=== PATIENT | male | born 1945 | race Caucasian/White ===

== ENCOUNTER 2017-04-20 13:10 | Emergency (ER) | payer OTHER ==
[~2017-04-20] VITALS: Ht 175.3 cm; Wt 82.0 kg
[~2017-04-20 13:10] MED LIST: ALBUTERO1 IN; ALBUTEROL S2.5 MG/.5 IN; AMOXICILLIN500 MG PO; ARTIF TEARS OU; ATENOLOL25 MG OR; CLARITIN10 M1 PO; CLARITIN10 MG PO; CLOTRIMAZOLE12 TOP; CLOTRIMAZOLE13 TOP; FOSINOPRIL40 MG PO; GLUCOSE4 GM PO; GLUCOVANC1 OR; GLUCOVANCE5 MG/500 M OR; HYDROCORT AC2.5% TOP; LABETALOL PO; MECLIZINE25 MG PO; METFORMIN500 MG PO; NORVASC2.5 MG PO; NOVOLIN N100 UNIT/M SC; NOVOLIN N1000 UNITS SC; PLAVIX75 MG OR; PRILOSEC20 MG PO; PRILOSEC40 MG PO; TAM75CAP PO; TEARS NATURA OU; TYLENOL500 MG PO; VIAGRA25 MG PO; VITAMIN B-12500 MCG PO; ZESTRIL OR; ZESTRIL/PRINIVI20 MG OR; ZESTRIL10 M1 PO; [UNRECOGNIZED DRUG - OTHER] OR
[2017-04-20 14:01] LABS: HEMATOCRIT 37.7 % (39.0-50.0); HEMOGLOBIN 12.8 g/dl (14.0-18.0); IMMATURE GRANULOCYTES 0.4 % (0.0-1.0); MEAN CELL VOLUME 87.7 fL CALC (80.0-100.0); MEAN CORPUSCULAR HGB 29.8 pG CALC (26.0-32.0); NEUT# 5.17 thou/uL (1.82-7.42); RED BLOOD COUNT 4.3 mill/uL (4.70-6.10); RED CELL DISTRI WIDTH 12.7 % (11.5-15.5)
[2017-04-20 14:09] LABS: PROTHROMBIN TIME 10.6 SECONDS (9.0-12.5)
[2017-04-20 14:11] LABS: ALBUMIN 4.2 g/dL (3.2-5.0); ALKALINE PHOSPHATASE 63 u/l (38-126); ANION GAP 15 (6-22 (CALC)); BILIRUBIN, TOTAL 0.6 mg/dL (0.0-1.4); BUN 9 mg/dL (8-23); BUN/CREATININE RATIO 10 (12-20 (CALC)); CALCIUM 9.4 mg/dL (8.4-10.2); CARBON DIOXIDE 27 mmol/l (22-30); CHLORIDE 102 mmol/l (95-108); CREATININE 0.9 mg/dL (0.7-1.3); GFR > 60 ML/MIN (>=60 (CALC)); GFR FOR AFR.AMER. > 60 ML/MIN (>=60 (CALC)); GLUCOSE 180 mg/dL (82-115); POTASSIUM 4.3 mmol/l (3.5-5.1); SGOT/AST 18 u/l (19-48); SGPT/ALT 24 u/l (11-66); SODIUM 140 mmol/l (137-146); TOTAL PROTEIN 7.2 g/dL (6.3-8.2)
[2017-04-20 14:23] LABS: MYOGLOBIN 42 ng/mL (0 - 121)
[2017-04-20 15:55] VITALS: BP 125/70
== END 2017-04-20 15:56 | disposition left against medical advice (07) | DRG 69 ==
LOC: ED 13:10
PROVIDERS: Emergency Medicine
DX: G45.9 Transient cerebral ischemic attack, unspecified (principal); I69.954 Hemiplegia and hemiparesis following unspecified cerebrovascular disease affecting left non-dominant side; J44.9 Chronic obstructive pulmonary disease, unspecified; E11.9 Type 2 diabetes mellitus without complications; I10 Essential (primary) hypertension; Z79.4 Long term (current) use of insulin; Z91.19 Patient's noncompliance with other medical treatment and regimen

== ENCOUNTER 2017-06-11 00:58 | Emergency (ER) | payer OTHER ==
[~2017-06-11] VITALS: Ht 175.3 cm; Wt 80.4 kg
[2017-06-11 01:40] LABS: HEMATOCRIT 38.7 % (39.0-50.0); HEMOGLOBIN 13.3 g/dl (14.0-18.0); IMMATURE GRANULOCYTES 0.4 % (0.0-1.0); MEAN CELL VOLUME 86.6 fL CALC (80.0-100.0); MEAN CORPUSCULAR HGB 29.8 pG CALC (26.0-32.0); MEAN CORPUSCULAR HGB CONC 34.4 g/L CALC (32.0-36.0); NEUT# 12.25 thou/uL (1.82-7.42); RED BLOOD COUNT 4.47 mill/uL (4.70-6.10); RED CELL DISTRI WIDTH 12.4 % (11.5-15.5)
[2017-06-11 01:47] LABS: ALBUMIN 4.3 g/dL (3.2-5.0); ALKALINE PHOSPHATASE 75 u/l (38-126); ANION GAP 17 (6-22 (CALC)); BILIRUBIN, TOTAL 0.9 mg/dL (0.0-1.4); BUN 13 mg/dL (8-23); BUN/CREATININE RATIO 14 (12-20 (CALC)); CALCIUM 9.7 mg/dL (8.4-10.2); CARBON DIOXIDE 23 mmol/l (22-30); CHLORIDE 102 mmol/l (95-108); GFR > 60 ML/MIN (>=60 (CALC)); GFR FOR AFR.AMER. > 60 ML/MIN (>=60 (CALC)); GLUCOSE 330 mg/dL (82-115); POTASSIUM 4.2 mmol/l (3.5-5.1); SGOT/AST 24 u/l (19-48); SGPT/ALT 31 u/l (11-66); SODIUM 138 mmol/l (137-146); TOTAL PROTEIN 7.6 g/dL (6.3-8.2)
[2017-06-11 01:57] LABS: ACT PARTIAL THROMBO TIME 26.8 SECONDS (20.0-32.5); PROTHROMBIN TIME 10.9 SECONDS (9.0-12.5)
[2017-06-11 02:24] LABS: URINE BILIRUBIN - DIPSTICK NEGATIVE (NEGATIVE); URINE BLOOD DIPSTICK TRACE-LYSED (NEGATIVE); URINE CLARITY CLEAR; URINE COLOR YELLOW; URINE GLUCOSE - DIPSTICK >=1000 mg/dL (NEGATIVE); URINE KETONE TRACE mg/dL (NEGATIVE); URINE LEUK ESTERASE NEGATIVE (NEGATIVE); URINE NITRITE - DIPSTICK NEGATIVE (Negative); URINE PROTEIN - DIPSTICK NEGATIVE (NEG-TRACE); URINE UROBILINOGEN - DIPSTICK 0.2 E.U./dL (0.2)
[2017-06-11 07:40] VITALS: BP 169/81
== END 2017-06-11 07:40 | DRG 536 ==
LOC: ED 00:58 → ED-I 01:21 → ED 07:40
PROVIDERS: Emergency Medicine
DX: S72.042A Displaced fracture of base of neck of left femur, initial encounter for closed fracture (principal); I69.954 Hemiplegia and hemiparesis following unspecified cerebrovascular disease affecting left non-dominant side; J44.9 Chronic obstructive pulmonary disease, unspecified; E11.9 Type 2 diabetes mellitus without complications; I10 Essential (primary) hypertension; W06.XXXA Fall from bed, initial encounter; Y92.003 Bedroom of unspecified non-institutional (private) residence as the place of occurrence of the external cause; Z87.11 Personal history of peptic ulcer disease

== ENCOUNTER 2017-07-09 13:54 | Emergency (ER) | payer OTHER ==
[~2017-07-09] VITALS: Ht 175.3 cm; Wt 60.0 kg
[2017-07-09 14:18] LABS: HEMATOCRIT 33.3 % (39.0-50.0); IMMATURE GRANULOCYTES 0.3 % (0.0-1.0); MEAN CELL VOLUME 88.3 fL CALC (80.0-100.0); MEAN CORPUSCULAR HGB 29.2 pG CALC (26.0-32.0); NEUT# 7.87 thou/uL (1.82-7.42); RED BLOOD COUNT 3.77 mill/uL (4.70-6.10); RED CELL DISTRI WIDTH 12.4 % (11.5-15.5)
[2017-07-09 14:34] LABS: ALBUMIN 3.9 g/dL (3.2-5.0); ALKALINE PHOSPHATASE 82 u/l (38-126); ANION GAP 15 (6-22 (CALC)); BILIRUBIN, TOTAL 0.7 mg/dL (0.0-1.4); BUN 10 mg/dL (8-23); BUN/CREATININE RATIO 13 (12-20 (CALC)); CALCIUM 9.3 mg/dL (8.4-10.2); CARBON DIOXIDE 28 mmol/l (22-30); CHLORIDE 101 mmol/l (95-108); CREATININE 0.8 mg/dL (0.7-1.3); GFR > 60 ML/MIN (>=60 (CALC)); GFR FOR AFR.AMER. > 60 ML/MIN (>=60 (CALC)); GLUCOSE 143 mg/dL (82-115); LIPASE 39 u/l (23-300); POTASSIUM 4.3 mmol/l (3.5-5.1); SGOT/AST 28 u/l (19-48); SGPT/ALT 32 u/l (11-66); SODIUM 140 mmol/l (137-146); TOTAL PROTEIN 7.6 g/dL (6.3-8.2)
[2017-07-09 14:44] LABS: MYOGLOBIN 78 ng/mL (0 - 121)
[2017-07-09 15:14] VITALS: BP 139/69
== END 2017-07-09 15:40 | disposition short-term general hospital (02) | DRG 282 ==
LOC: ED 13:54
PROVIDERS: Emergency Medicine
DX: I21.4 Non-ST elevation (NSTEMI) myocardial infarction (principal); I10 Essential (primary) hypertension; R00.0 Tachycardia, unspecified
CPT/HCPCS: J1650

== ENCOUNTER 2017-08-04 04:34 | Emergency (ER) | payer OTHER, MEDICARE ==
[~2017-08-04] VITALS: Ht 175.3 cm; Wt 76.4 kg
[2017-08-04] MEDS ORDERED: ELIQUIS5 MG PO (05:20)
[2017-08-04] MEDS ORDERED: METOPROL TAR25 MG PO (05:21)
[2017-08-04] MEDS ORDERED: FOSINOPRIL40 MG PO (05:28)
[2017-08-04 06:39] VITALS: BP 138/75
== END 2017-08-04 06:45 | disposition home or self-care (01) | DRG 605 ==
LOC: ED 04:34
DX: S90.31XA Contusion of right foot, initial encounter (principal); W22.8XXA Striking against or struck by other objects, initial encounter; Y93.9 Activity, unspecified; Y92.009 Unspecified place in unspecified non-institutional (private) residence as the place of occurrence of the external cause

== ENCOUNTER 2017-12-12 18:05 | Emergency (ER) | payer OTHER, MEDICARE ==
[~2017-12-12] VITALS: Ht 175.3 cm; Wt 65.9 kg
[~2017-12-12 18:05] MED LIST changes: +ELIQUIS5 MG PO; +METOPROL TAR25 MG PO
[2017-12-12 18:35] LABS: IMMATURE GRANULOCYTES 0.1 % (0.0-1.0); MEAN CELL VOLUME 87.1 fL CALC (80.0-100.0); MEAN CORPUSCULAR HGB 29.2 pG CALC (26.0-32.0); MEAN CORPUSCULAR HGB CONC 33.6 g/L CALC (32.0-36.0); NEUT# 4.84 thou/uL (1.82-7.42); RED BLOOD COUNT 4.48 mill/uL (4.70-6.10); RED CELL DISTRI WIDTH 12.7 % (11.5-15.5)
[2017-12-12 18:36] LABS: HEMOGLOBIN 13.1 g/dl (14.0-18.0)
[2017-12-12 18:54] LABS: ACT PARTIAL THROMBO TIME 29.4 SECONDS (20.0-32.5); INTERNATIONAL NORMALIZED RATIO 1.1 RATIO (0.7-1.3); PROTHROMBIN TIME 12.2 SECONDS (9.0-12.5)
[2017-12-12 18:55] LABS: ALBUMIN 4.2 g/dL (3.2-5.0); ALKALINE PHOSPHATASE 81 u/l (38-126); ANION GAP 16 (6-22 (CALC)); BILIRUBIN, TOTAL 0.3 mg/dL (0.0-1.4); BUN 11 mg/dL (8-23); BUN/CREATININE RATIO 11 (12-20 (CALC)); CARBON DIOXIDE 27 mmol/l (22-30); CHLORIDE 101 mmol/l (95-108); GFR > 60 ML/MIN (>=60 (CALC)); GFR FOR AFR.AMER. > 60 ML/MIN (>=60 (CALC)); SGOT/AST 18 u/l (19-48); SGPT/ALT 25 u/l (11-66); SODIUM 140 mmol/l (137-146); TOTAL PROTEIN 7.3 g/dL (6.3-8.2)
[2017-12-12] MEDS ORDERED: SAVAYSA15 MG PO (18:57)
[2017-12-12 19:06] LABS: MYOGLOBIN 49 ng/mL (0 - 121)
[2017-12-12 19:25] LABS: URINE BILIRUBIN - DIPSTICK NEGATIVE (NEGATIVE); URINE BLOOD DIPSTICK NEGATIVE (NEGATIVE); URINE COLOR YELLOW; URINE GLUCOSE - DIPSTICK >=1000 mg/dL (NEGATIVE); URINE KETONE NEGATIVE (NEGATIVE); URINE LEUK ESTERASE NEGATIVE (NEGATIVE); URINE NITRITE - DIPSTICK NEGATIVE (Negative); URINE PROTEIN - DIPSTICK NEGATIVE (NEG-TRACE); URINE UROBILINOGEN - DIPSTICK 0.2 E.U./dL (0.2)
[2017-12-12 20:23] LABS: URINE CLARITY CLEAR
[2017-12-12 20:45] VITALS: BP 161/86
== END 2017-12-12 20:48 | disposition home or self-care (01) | DRG 69 ==
LOC: ED 18:05
PROVIDERS: Family Medicine
DX: G45.9 Transient cerebral ischemic attack, unspecified (principal); E11.40 Type 2 diabetes mellitus with diabetic neuropathy, unspecified; J44.9 Chronic obstructive pulmonary disease, unspecified; I10 Essential (primary) hypertension; Z86.73 Personal history of transient ischemic attack (TIA), and cerebral infarction without residual deficits

== ENCOUNTER 2018-04-04 21:32 | Emergency (ER) | payer OTHER, MEDICARE ==
[~2018-04-04] VITALS: Ht 177.8 cm; Wt 80.9 kg
[~2018-04-04 21:32] MED LIST changes: +SAVAYSA15 MG PO
[2018-04-04 22:02] LABS: HEMATOCRIT 39.7 % (39.0-50.0); HEMOGLOBIN 13.4 g/dl (14.0-18.0); IMMATURE GRANULOCYTES 0.2 % (0.0-1.0); MEAN CELL VOLUME 87.6 fL CALC (80.0-100.0); MEAN CORPUSCULAR HGB 29.6 pG CALC (26.0-32.0); MEAN CORPUSCULAR HGB CONC 33.8 g/L CALC (32.0-36.0); RED BLOOD COUNT 4.53 mill/uL (4.70-6.10); RED CELL DISTRI WIDTH 12.6 % (11.5-15.5)
[2018-04-04 22:16] LABS: ALBUMIN 4.1 g/dL (3.2-5.0); ALKALINE PHOSPHATASE 75 u/l (38-126); ANION GAP 14 (6-22 (CALC)); BILIRUBIN, TOTAL 0.4 mg/dL (0.0-1.4); BUN 10 mg/dL (8-23); BUN/CREATININE RATIO 10 (12-20 (CALC)); CARBON DIOXIDE 27 mmol/l (22-30); CHLORIDE 101 mmol/l (95-108); CREATININE 1.1 mg/dL (0.7-1.3); GFR > 60 ML/MIN (>=60 (CALC)); GFR FOR AFR.AMER. > 60 ML/MIN (>=60 (CALC)); POTASSIUM 3.8 mmol/l (3.5-5.1); SGOT/AST 26 u/l (19-48); SGPT/ALT 29 u/l (11-66); SODIUM 138 mmol/l (137-146); TOTAL PROTEIN 7.8 g/dL (6.3-8.2)
[2018-04-04 22:24] LABS: ACT PARTIAL THROMBO TIME 25.9 SECONDS (20.0-32.5); D-DIMER 0.53 mg/L (0.19-0.60); PROTHROMBIN TIME 10.7 SECONDS (9.0-12.5)
[2018-04-04 22:28] LABS: MYOGLOBIN 53 ng/mL (0 - 121)
[2018-04-04] MEDS ORDERED: METO25TAB PO (22:51)
[2018-04-04 23:05] VITALS: BP 164/80
== END 2018-04-04 23:05 | disposition home or self-care (01) | DRG 313 ==
LOC: ED 21:32
PROVIDERS: Family Medicine
DX: R07.89 Other chest pain (principal); R42 Dizziness and giddiness; I10 Essential (primary) hypertension; I69.954 Hemiplegia and hemiparesis following unspecified cerebrovascular disease affecting left non-dominant side; E11.40 Type 2 diabetes mellitus with diabetic neuropathy, unspecified; J44.9 Chronic obstructive pulmonary disease, unspecified

== ENCOUNTER 2019-06-10 14:01 | Emergency (ER) | payer OTHER ==
[~2019-06-10] VITALS: Ht 177.8 cm; Wt 60.0 kg
[~2019-06-10 14:01] MED LIST changes: +METO25TAB PO
[2019-06-10 15:03] LABS: HEMATOCRIT 36.9 % (39.0-50.0); HEMOGLOBIN 12.5 g/dl (14.0-18.0); IMMATURE GRANULOCYTES 0.4 % (0.0-5.0); MEAN CELL VOLUME 87.4 fL CALC (80.0-100.0); MEAN CORPUSCULAR HGB 29.6 pG CALC (26.0-32.0); MEAN CORPUSCULAR HGB CONC 33.9 g/L CALC (32.0-36.0); NEUT# 5.24 thou/uL (1.82-7.42); RED BLOOD COUNT 4.22 mill/uL (4.70-6.10); RED CELL DISTRI WIDTH 12.5 % (11.5-15.5)
[2019-06-10 15:14] LABS: ANION GAP 12 (6-22 (CALC)); BUN 10 mg/dL (8-23); BUN/CREATININE RATIO 11 (12-20 (CALC)); CARBON DIOXIDE 29 mmol/l (22-30); CHLORIDE 102 mmol/l (95-108); GFR > 60 ML/MIN (>=60 (CALC)); GFR FOR AFR.AMER. > 60 ML/MIN (>=60 (CALC)); POTASSIUM 3.7 mmol/l (3.5-5.1); SODIUM 140 mmol/l (137-146)
[2019-06-10 15:17] LABS: PROTHROMBIN TIME 10.7 SECONDS (9.0-12.5)
[2019-06-10 17:04] VITALS: BP 162/80
== END 2019-06-10 16:30 | disposition short-term general hospital (02) | DRG 65 ==
LOC: ED 14:01
PROVIDERS: Family Medicine
DX: I63.9 Cerebral infarction, unspecified (principal); R53.1 Weakness; R20.0 Anesthesia of skin; I69.354 Hemiplegia and hemiparesis following cerebral infarction affecting left non-dominant side; R29.705 NIHSS score 5; J44.9 Chronic obstructive pulmonary disease, unspecified; E11.40 Type 2 diabetes mellitus with diabetic neuropathy, unspecified; I10 Essential (primary) hypertension; Z79.4 Long term (current) use of insulin

== ENCOUNTER 2020-02-22 11:23 | Emergency (ER) | payer OTHER ==
[2020-02-22] MEDS ORDERED: MEDDOSEPAK PO (12:43)
[2020-02-22 12:50] VITALS: BP 155/93
== END 2020-02-22 12:57 | disposition home or self-care (01) | DRG 561 ==
LOC: ED 11:23
DX: T84.84XA Pain due to internal orthopedic prosthetic devices, implants and grafts, initial encounter (principal); E11.40 Type 2 diabetes mellitus with diabetic neuropathy, unspecified; I10 Essential (primary) hypertension; J44.9 Chronic obstructive pulmonary disease, unspecified; Y83.1 Surgical operation with implant of artificial internal device as the cause of abnormal reaction of the patient, or of later complication, without mention of misadventure at the time of the procedure; Z96.642 Presence of left artificial hip joint; Z79.4 Long term (current) use of insulin

== ENCOUNTER 2020-03-08 16:35 | Emergency (ER) | payer OTHER ==
[~2020-03-08 16:35] MED LIST changes: +MEDDOSEPAK PO
[2020-03-08 17:58] LABS: HEMATOCRIT 39.2 % (39.0-50.0); HEMOGLOBIN 13.2 g/dl (14.0-18.0); IMMATURE GRANULOCYTES 0.5 % (0.0-5.0); MEAN CELL VOLUME 87.9 fL CALC (80.0-100.0); MEAN CORPUSCULAR HGB 29.6 pG CALC (26.0-32.0); MEAN CORPUSCULAR HGB CONC 33.7 g/dL CAL (32.0-36.0); NEUT# 7.29 thou/uL (1.82-7.42); RED BLOOD COUNT 4.46 mill/uL (4.70-6.10); RED CELL DISTRI WIDTH 12.9 % (11.5-15.5)
[2020-03-08 18:14] LABS: ALKALINE PHOSPHATASE 92 u/l (38-126); ANION GAP 13 (6-22 (CALC)); BUN 22 mg/dL (8-23); BUN/CREATININE RATIO 24 (12-20 (CALC)); CARBON DIOXIDE 26 mmol/l (22-30); CHLORIDE 100 mmol/l (95-108); CREATININE 0.9 mg/dL (0.7-1.3); GFR > 60 ML/MIN (>=60 (CALC)); GFR FOR AFR.AMER. > 60 ML/MIN (>=60 (CALC)); POTASSIUM 4.1 mmol/l (3.5-5.1); SGOT/AST 20 u/l (19-48); SODIUM 134 mmol/l (137-146); TOTAL PROTEIN 7.5 g/dL (6.3-8.2)
[2020-03-08 18:25] LABS: MYOGLOBIN 37 ng/mL (0 - 121)
[2020-03-08 18:27] LABS: BILIRUBIN, TOTAL 0.6 mg/dL (0.0-1.4)
[2020-03-08 18:48] LABS: URINE BILIRUBIN - DIPSTICK NEGATIVE (NEGATIVE); URINE BLOOD DIPSTICK NEGATIVE (NEGATIVE); URINE COLOR YELLOW; URINE GLUCOSE - DIPSTICK NEGATIVE (NEGATIVE); URINE KETONE NEGATIVE (NEGATIVE); URINE LEUK ESTERASE NEGATIVE (NEGATIVE); URINE NITRITE - DIPSTICK NEGATIVE (Negative); URINE PROTEIN - DIPSTICK NEGATIVE (NEG-TRACE); URINE UROBILINOGEN - DIPSTICK 0.2 E.U./dL (0.2)
[2020-03-08 19:32] VITALS: BP 112/57
== END 2020-03-08 19:32 | disposition home or self-care (01) | DRG 149 ==
LOC: ED 16:35
DX: R42 Dizziness and giddiness (principal); I69.954 Hemiplegia and hemiparesis following unspecified cerebrovascular disease affecting left non-dominant side; E11.40 Type 2 diabetes mellitus with diabetic neuropathy, unspecified; I10 Essential (primary) hypertension; J44.9 Chronic obstructive pulmonary disease, unspecified; Z79.4 Long term (current) use of insulin

== ENCOUNTER 2021-04-27 13:35 | Emergency (ER) | payer OTHER ==
[~2021-04-27] VITALS: Ht 177.8 cm; Wt 74.5 kg
[2021-04-27] MEDS ORDERED: PROAIR HFA IN (14:12)
[2021-04-27] MEDS ORDERED: ASPIRIN81 MG PO (14:13)
[2021-04-27] MEDS ORDERED: JARDIANCE25 MG PO (14:14)
[2021-04-27] MEDS ORDERED: FINASTERIDE PO (14:15)
[2021-04-27] MEDS ORDERED: LEVEMIR FL100 UNIT/M SC ×2 (14:16→14:17)
[2021-04-27] MEDS ORDERED: LIDOCAINE PATCH 55 % TOP (14:18)
[2021-04-27] MEDS ORDERED: PREMIUM LIDOCAINE5 % TOP (14:20)
[2021-04-27] MEDS ORDERED: LORATADINE10 M1 PO (14:20)
[2021-04-27] MEDS ORDERED: LOSARTAN POTASS25 MG PO (14:21)
[2021-04-27] MEDS ORDERED: OMEPRAZOLE DR20 MG PO (14:22)
[2021-04-27] MEDS ORDERED: MAGNESIUM OXID400 M1 PO (14:22)
[2021-04-27] MEDS ORDERED: POLYETHYLE17 GM/SCOO PO (14:23)
[2021-04-27] MEDS ORDERED: SPIRIVA RE2.5 MCG/AC INHW/SPAC (14:24)
[2021-04-27 14:25] LABS: ALBUMIN 4.2 g/dL (3.2-5.0); ALKALINE PHOSPHATASE 75 u/l (38-126); ANION GAP 16 (6-22 (CALC)); BILIRUBIN, TOTAL 0.5 mg/dL (0.0-1.4); BUN 19 mg/dL (8-23); BUN/CREATININE RATIO 20 (12-20 (CALC)); CARBON DIOXIDE 24 mmol/l (22-30); CHLORIDE 103 mmol/l (95-108); GFR > 60 ML/MIN (>=60 (CALC)); GFR FOR AFR.AMER. > 60 ML/MIN (>=60 (CALC)); HEMATOCRIT 42.3 % (39.0-50.0); IMMATURE GRANULOCYTES 0.5 % (0.0-5.0); MEAN CELL VOLUME 90.2 fL CALC (80.0-100.0); MEAN CORPUSCULAR HGB 29.9 pG CALC (26.0-32.0); MEAN CORPUSCULAR HGB CONC 33.1 g/dL CAL (32.0-36.0); NEUT# 7.21 thou/uL (1.82-7.42); RED BLOOD COUNT 4.69 mill/uL (4.70-6.10); RED CELL DISTRI WIDTH 12.7 % (11.5-15.5); SODIUM 138 mmol/l (137-146); TOTAL PROTEIN 7.7 g/dL (6.3-8.2)
[2021-04-27] MEDS ORDERED: VITAMIN B COMPL1 TAB PO (14:26)
[2021-04-27 14:31] LABS: SGOT/AST 40 u/l (19-48)
[2021-04-27] MEDS ORDERED: ASCORBIC ACD500 MG PO (14:31)
[2021-04-27] MEDS ORDERED: D3-10001000 UNIT PO (14:32)
[2021-04-27 14:37] LABS: MYOGLOBIN 33 ng/mL (0 - 121)
[2021-04-27] MEDS ORDERED: VITAMIN B-121000 MC2 SL (14:47)
[2021-04-27] MEDS ORDERED: PROBIOTIC1 TAB PO (14:48)
[2021-04-27 16:20] LABS: URINE BILIRUBIN - DIPSTICK NEGATIVE (NEGATIVE); URINE BLOOD DIPSTICK NEGATIVE (NEGATIVE); URINE COLOR YELLOW; URINE GLUCOSE - DIPSTICK >=1000 mg/dL (NEGATIVE); URINE KETONE 15 mg/dL (NEGATIVE); URINE LEUK ESTERASE NEGATIVE (NEGATIVE); URINE PH 5.5 (4.5-8.0); URINE PROTEIN - DIPSTICK NEGATIVE (NEG-TRACE); URINE UROBILINOGEN - DIPSTICK 0.2 E.U./dL (0.2)
[2021-04-27 16:25] LABS: URINE NITRITE - DIPSTICK NEGATIVE (Negative)
[2021-04-27] MEDS ORDERED: ONDANSETRON4 MG PO (17:29)
[2021-04-27] MEDS ORDERED: MECLIZINE25 MG PO (17:29)
[2021-04-27 17:56] VITALS: BP 150/80
== END 2021-04-27 18:30 | disposition home or self-care (01) | DRG 149 ==
LOC: ED 13:35
PROVIDERS: Emergency Medicine
DX: R42 Dizziness and giddiness (principal); I10 Essential (primary) hypertension; E11.40 Type 2 diabetes mellitus with diabetic neuropathy, unspecified; J44.9 Chronic obstructive pulmonary disease, unspecified; Z79.4 Long term (current) use of insulin; Z86.73 Personal history of transient ischemic attack (TIA), and cerebral infarction without residual deficits; Z20.822 Contact with and (suspected) exposure to COVID-19

== ENCOUNTER 2021-06-21 10:42 | Emergency (ER) | payer OTHER ==
[~2021-06-21] VITALS: Ht 177.8 cm; Wt 73.0 kg
[~2021-06-21 10:42] MED LIST changes: +ASCORBIC ACD500 MG PO; +ASPIRIN81 MG PO; +D3-10001000 UNIT PO; +FINASTERIDE PO; +JARDIANCE25 MG PO; +LEVEMIR FL100 UNIT/M SC; +LIDOCAINE PATCH 55 % TOP; +LORATADINE10 M1 PO; +LOSARTAN POTASS25 MG PO; +MAGNESIUM OXID400 M1 PO; +OMEPRAZOLE DR20 MG PO; +ONDANSETRON4 MG PO; +POLYETHYLE17 GM/SCOO PO; +PREMIUM LIDOCAINE5 % TOP; +PROAIR HFA IN; +PROBIOTIC1 TAB PO; +SPIRIVA RE2.5 MCG/AC INHW/SPAC; +VITAMIN B COMPL1 TAB PO; +VITAMIN B-121000 MC2 SL
[2021-06-21 11:42] VITALS: BP 118/75
== END 2021-06-21 12:38 | disposition left against medical advice (07) | DRG 951 ==
LOC: ED 10:42 → LWOBS 12:37
DX: Z53.21 Procedure and treatment not carried out due to patient leaving prior to being seen by health care provider (principal)

== ENCOUNTER 2021-06-23 10:19 | Emergency (ER) | payer OTHER ==
[~2021-06-23] VITALS: Ht 177.8 cm; Wt 74.0 kg
[2021-06-23 11:15] LABS: URINE BILIRUBIN - DIPSTICK NEGATIVE (NEGATIVE); URINE BLOOD DIPSTICK NEGATIVE (NEGATIVE); URINE COLOR YELLOW; URINE GLUCOSE - DIPSTICK >=1000 mg/dL (NEGATIVE); URINE KETONE NEGATIVE (NEGATIVE); URINE LEUK ESTERASE NEGATIVE (NEGATIVE); URINE PROTEIN - DIPSTICK NEGATIVE (NEG-TRACE); URINE UROBILINOGEN - DIPSTICK 0.2 E.U./dL (0.2)
[2021-06-23 11:16] LABS: HEMATOCRIT 42.1 % (39.0-50.0); HEMOGLOBIN 13.8 g/dl (14.0-18.0); IMMATURE GRANULOCYTES 0.3 % (0.0-5.0); MEAN CELL VOLUME 91.5 fL CALC (80.0-100.0); MEAN CORPUSCULAR HGB CONC 32.8 g/dL CAL (32.0-36.0); NEUT# 5.24 thou/uL (1.82-7.42); RED BLOOD COUNT 4.6 mill/uL (4.70-6.10); RED CELL DISTRI WIDTH 12.8 % (11.5-15.5)
[2021-06-23 11:18] LABS: URINE NITRITE - DIPSTICK NEGATIVE (Negative)
[2021-06-23 12:44] LABS: ALKALINE PHOSPHATASE 75 u/l (38-126); AMYLASE 88 u/l (30-110); ANION GAP 8 (6-22 (CALC)); BILIRUBIN, TOTAL 0.5 mg/dL (0.0-1.4); BUN 25 mg/dL (8-23); BUN/CREATININE RATIO 24 (12-20 (CALC)); CARBON DIOXIDE 28 mmol/l (22-30); CHLORIDE 103 mmol/l (95-108); GFR > 60 ML/MIN (>=60 (CALC)); GFR FOR AFR.AMER. > 60 ML/MIN (>=60 (CALC)); LIPASE 87 u/l (23-300); POTASSIUM 4.3 mmol/l (3.5-5.1); SGOT/AST 23 u/l (19-48); SODIUM 135 mmol/l (137-146); TOTAL PROTEIN 7.2 g/dL (6.3-8.2)
[2021-06-23 13:51] VITALS: BP 142/79
== END 2021-06-23 14:16 | disposition home or self-care (01) | DRG 392 ==
LOC: ED 10:19
PROVIDERS: Emergency Medicine
DX: R10.13 Epigastric pain (principal); I10 Essential (primary) hypertension; E11.40 Type 2 diabetes mellitus with diabetic neuropathy, unspecified; J44.9 Chronic obstructive pulmonary disease, unspecified; Z86.73 Personal history of transient ischemic attack (TIA), and cerebral infarction without residual deficits; Z79.4 Long term (current) use of insulin

== ENCOUNTER 2022-06-11 08:23 | Emergency (ER) | payer OTHER ==
[~2022-06-11] VITALS: Ht 177.8 cm; Wt 68.9 kg
[2022-06-11] VITALS (7 sets, daily range): BP systolic 109–149; BP diastolic 45–79
[2022-06-11 09:24] LABS: HEMATOCRIT 39.8 % (39.0-50.0); HEMOGLOBIN 13.8 g/dl (14.0-18.0); MEAN CELL VOLUME 86.7 fL CALC (80.0-100.0); MEAN CORPUSCULAR HGB 30.1 pG CALC (26.0-32.0); MEAN CORPUSCULAR HGB CONC 34.7 g/dL CAL (32.0-36.0); NEUT# 1.52 thou/uL (1.82-7.42); RED BLOOD COUNT 4.59 mill/uL (4.70-6.10); RED CELL DISTRI WIDTH 12.6 % (11.5-15.5)
[2022-06-11 09:37] LABS: ALKALINE PHOSPHATASE 44 u/l (38-126); ANION GAP 13 (6-22 (CALC)); BUN 20 mg/dL (8-23); BUN/CREATININE RATIO 22 (12-20 (CALC)); CARBON DIOXIDE 25 mmol/l (22-30); CHLORIDE 102 mmol/l (95-108); CREATININE 0.9 mg/dL (0.7-1.3); GFR FOR AFR.AMER. > 60 ML/MIN (>=60 (CALC)); GFR OTHER RACES > 60 ML/MIN (>=60 (CALC)); POTASSIUM 4.4 mmol/l (3.5-5.1); SODIUM 135 mmol/l (137-146); TOTAL PROTEIN 7.6 g/dL (6.3-8.2)
[2022-06-11 09:39] LABS: BILIRUBIN, TOTAL 0.8 mg/dL (0.0-1.4); SGOT/AST 41 u/l (19-48)
== END 2022-06-11 09:58 | disposition home or self-care (01) | DRG 391 ==
LOC: ED 08:23
PROVIDERS: Family Medicine
DX: R19.5 Other fecal abnormalities (principal); U07.1 COVID-19; E11.40 Type 2 diabetes mellitus with diabetic neuropathy, unspecified; I10 Essential (primary) hypertension; J44.9 Chronic obstructive pulmonary disease, unspecified; Z86.73 Personal history of transient ischemic attack (TIA), and cerebral infarction without residual deficits; Z79.4 Long term (current) use of insulin

== ENCOUNTER 2023-05-15 14:56 | Emergency (ER) | payer OTHER ==
[~2023-05-15] VITALS: Ht 177.8 cm; Wt 78.0 kg
[2023-05-15 15:31] VITALS: BP 118/80
[2023-05-15 15:45] VITALS: BP 107/68
[2023-05-15 16:00] VITALS: BP 107/81
[2023-05-15 16:15] VITALS: BP 122/75
[2023-05-15] MEDS ORDERED: OMNI-PAC300 MG PO (16:52)
[2023-05-15 16:55] VITALS: BP 122/75
== END 2023-05-15 17:00 | disposition home or self-care (01) | DRG 603 ==
LOC: ED 14:56
DX: L03.115 Cellulitis of right lower limb (principal); I10 Essential (primary) hypertension; E11.9 Type 2 diabetes mellitus without complications; J44.9 Chronic obstructive pulmonary disease, unspecified; Z79.4 Long term (current) use of insulin; Z86.73 Personal history of transient ischemic attack (TIA), and cerebral infarction without residual deficits

== ENCOUNTER 2023-09-25 13:27 | Observation (INO) | payer OTHER ==
[~2023-09-25] VITALS: Ht 177.8 cm; Wt 76.8 kg
[2023-09-25] VITALS (23 sets, daily range): BP systolic 114–188; BP diastolic 71–119
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
[~2023-09-25 13:27] MED LIST changes: +OMNI-PAC300 MG PO
--- NOTE | 2023-09-25 13:27 | NUR ---
PT TAKEN TO ROOM 15 VIA MEDICAL SCOOTER;VS MONITORING INITIATED;N ACTIVE DISTRESS NOTED;CALL LIGHT WITHIN REACH
--- NOTE | 2023-09-25 14:20 | NUR ---
LAB AT BEDSIDE TO DRAW FOLLOWED BY A PORTABLE X-RAY;VSS;NO DISTRESS NOTED;CALL LIGHT WITHIN REACH
[2023-09-25 14:53] LABS: BASO% 0.5 % (0-3); EOS% 0.2 % (0-8); HEMATOCRIT 39.2 % (39.0-50.0); HEMOGLOBIN 13.1 g/dl (14.0-18.0); IMMATURE GRANULOCYTES 0.1 % (0.0-5.0); LYMPH% 13.9 % (15-41); MEAN CELL VOLUME 88.1 fL CALC (80.0-100.0); MEAN CORPUSCULAR HGB 29.4 pG CALC (26.0-32.0); MEAN CORPUSCULAR HGB CONC 33.4 g/dL CAL (32.0-36.0); MONO% 5.3 % (2-13); NEUT# 7.55 thou/uL (1.82-7.42); RED BLOOD COUNT 4.45 mill/uL (4.70-6.10); RED CELL DISTRI WIDTH 12.4 % (11.5-15.5)
[2023-09-25 15:10] LABS: ALBUMIN 4.2 g/dL (3.2-5.0); ALKALINE PHOSPHATASE 64 u/l (38-126); ANION GAP 13 (6-22 (CALC)); BILIRUBIN, TOTAL 0.7 mg/dL (0.2-1.3); BUN 18 mg/dL (8-23); BUN/CREATININE RATIO 20 (12-20 (CALC)); CARBON DIOXIDE 25 mmol/l (22-30); CHLORIDE 103 mmol/l (95-108); CREATININE 0.9 mg/dL (0.7-1.3); GFR FOR AFR.AMER. > 60 ML/MIN (>=60 (CALC)); GFR OTHER RACES > 60 ML/MIN (>=60 (CALC)); POTASSIUM 4.2 mmol/l (3.5-5.1); SGOT/AST 26 u/l (19-48); SODIUM 137 mmol/l (137-146); TOTAL PROTEIN 7.4 g/dL (6.3-8.2)
--- NOTE | 2023-09-25 15:20 | NUR ---
PT USING URINAL;PT VOIDED YELLOW URINE;VS MONITORING RESUMED;NO DISTRESS NOTED;CALL LIGHT WITHIN REACH
--- NOTE | 2023-09-25 16:20 | NUR ---
PT TALKING ON THE PHONE WITH HIS ;VSS;NO DISTRESS NOTED;CALL LIGHT WTIHIN REACH;PT AWARE OF THE EXTENDED WAIT TIME
--- NOTE | 2023-09-25 17:18 | NUR ---
PT IS REFUSING TO STAY OVERNIGHT. PT IS REFUSING TO SIGN THE AMA. HE NEEDS TO GO HOME AND TAKE CARE OF HIS .
--- NOTE | 2023-09-25 17:49 | NUR ---
ASSISTED PT WITH URINAL;PT VOIDED CLEAR YELLOW URINE WITHOUT DIFFICULTY;VSS;CALLL LIGHT WITHIN REACH
--- NOTE | 2023-09-25 19:05 | NUR ---
RECIEVED REPORT FROM PAUL RICHARDSON AT THIS TIME, PATIENT UPDATED ON CONTINUOUS PLAN OF CARE AT THIS TIME, AWAITING ALL FURTHER RESULTS/ORDERS, PATIENT AWAITING ADMISSION TO FLOOR.
--- NOTE | 2023-09-25 19:33 | NUR ---
REPORT CALLED TO MISTY AT THIS TIME, PATIENT UPDATED ON CONTINUOUS PLAN OF CARE WITH NO FURTHER QUESTIONS OR CONCERNS AT THIS TIME. AWAITING TRANSP[place] [facility] [place]
--- NOTE | 2023-09-25 20:00 | NUR ---
PATIENT TRANSPORTED SELF IN PERSONAL SCOOTER TO MS2 WITH BALANCE RECESSER, PATIENT PIVOTED SELF TO BED AND VERBALIZES APPRECIATION OF CARE AT THIS TIME.
[2023-09-26 00:24] VITALS: BP 132/82
--- NOTE | 2023-09-26 04:00 | NUR ---
PATIENT RESING IN BED, EYES CLOSED, NOT IN DISTRESS, DENIES CHEST DIOSCOMFORTS AT THIS TIME, CALL LIGHT IN REACH.
[2023-09-26 05:12] VITALS: BP 135/78
[2023-09-26 06:03] LABS: HEMATOCRIT 37.4 % (39.0-50.0); HEMOGLOBIN 12.7 g/dl (14.0-18.0); MEAN CORPUSCULAR HGB 29.9 pG CALC (26.0-32.0); RED BLOOD COUNT 4.25 mill/uL (4.70-6.10); RED CELL DISTRI WIDTH 12.5 % (11.5-15.5)
[2023-09-26 06:36] LABS: ALBUMIN 3.7 g/dL (3.2-5.0); ALKALINE PHOSPHATASE 56 u/l (38-126); ANION GAP 14 (6-22 (CALC)); BILIRUBIN, TOTAL 0.6 mg/dL (0.2-1.3); BUN 17 mg/dL (8-23); BUN/CREATININE RATIO 21 (12-20 (CALC)); CARBON DIOXIDE 26 mmol/l (22-30); CHLORIDE 102 mmol/l (95-108); CREATININE 0.8 mg/dL (0.7-1.3); GFR FOR AFR.AMER. > 60 ML/MIN (>=60 (CALC)); GFR OTHER RACES > 60 ML/MIN (>=60 (CALC)); MAGNESIUM 1.8 mg/dL (1.6-2.3); POTASSIUM 4.3 mmol/l (3.5-5.1); SGOT/AST 22 u/l (19-48); SODIUM 138 mmol/l (137-146); TOTAL PROTEIN 6.5 g/dL (6.3-8.2)
[2023-09-26 07:42] VITALS: BP 140/82
--- NOTE | 2023-09-26 08:00 | NUR ---
SHIFT CHANGE REPORT,PT AWAKE ALERT AND ORIENTED, NO C/O DISCOMFORT AT THIS TIME, VERY NEEDY AND NEEDS STAFF TO STAY WITH IN BR OR DURING URINATING, ADVISED HE WILL HAVE TO ASSIST HIM IN W/C AND WITH OTHER NEEDS HOWEVER, STAFF WILL NOT BE ABLE TO WAIT UNTIL HE IS COMPLETED USING TOILET BUT WILL BE THERE TO ASSIST HIM BACK TO W/C. TELE MONITOR IN PLACE, CALL SOLIMAN IN REACH AND BED LOCKED IN LOWEST POSITIO. ALL NEEDS WILL BE ADDRESSED.
[2023-09-26 08:23] VITALS: BP 140/62
[2023-09-26 09:29] VITALS: BP 150/84
[2023-09-26 09:31] VITALS: BP 150/84
--- NOTE | 2023-09-26 09:57 | NUR ---
BOOKED A CARDIOLOGY CONSULT WITH DR JIMENEZ VIA THE [facility] AT 0957 HRS.
[2023-09-26] MEDS ORDERED: JARDIANCE25 MG PO (12:06)
[2023-09-26] MEDS ORDERED: MECLIZINE12.5 M1 PO (12:09)
--- NOTE | 2023-09-26 12:36 | NUR ---
Discharge instructions given. Patient verbalizes understanding of same. Discharged in good condition via Wheelchair to Home with *Other. All belongings sent with pt.
== END 2023-09-26 12:29 | disposition home or self-care (01) | DRG 313 ==
LOC: ED 13:27 → ED-I 14:22 → ED 16:25 → MS2 16:26
PROVIDERS: Nurse Practitioner; ADMIT Student in an Organized Health Care Education/Training Program; ATTEND Student in an Organized Health Care Education/Training Program
DX: R07.89 Other chest pain (principal); I10 Essential (primary) hypertension; E11.40 Type 2 diabetes mellitus with diabetic neuropathy, unspecified; J44.9 Chronic obstructive pulmonary disease, unspecified; R42 Dizziness and giddiness; Z86.73 Personal history of transient ischemic attack (TIA), and cerebral infarction without residual deficits; Z88.6 Allergy status to analgesic agent; Z88.8 Allergy status to other drugs, medicaments and biological substances; Z87.11 Personal history of peptic ulcer disease; Z99.3 Dependence on wheelchair; Z79.4 Long term (current) use of insulin
CPT/HCPCS: J1650

== ENCOUNTER 2024-03-25 08:34 | Emergency (ER) | payer OTHER ==
[2024-03-25] VITALS (9 sets, daily range): BP systolic 142–180; BP diastolic 76–125
[~2024-03-25] VITALS: Ht 177.8 cm; Wt 80.0 kg
[~2024-03-25 08:34] MED LIST changes: +MECLIZINE12.5 M1 PO
[2024-03-25 09:08] LABS: BASO% 0.9 % (0-3); EOS% 2.9 % (0-8); HEMATOCRIT 39.2 % (39.0-50.0); HEMOGLOBIN 13.1 g/dl (14.0-18.0); IMMATURE GRANULOCYTES 0.1 % (0.0-5.0); LYMPH% 26.7 % (15-41); MEAN CELL VOLUME 89.9 fL CALC (80.0-100.0); MEAN CORPUSCULAR HGB CONC 33.4 g/dL CAL (32.0-36.0); NEUT# 4.38 thou/uL (1.82-7.42); NEUT% 62.4 % (42-76); RED BLOOD COUNT 4.36 mill/uL (4.70-6.10); RED CELL DISTRI WIDTH 12.5 % (11.5-15.5)
[2024-03-25 09:37] LABS: ALBUMIN 3.9 g/dL (3.2-5.0); BILIRUBIN, TOTAL 0.5 mg/dL (0.2-1.3); POTASSIUM 4.3 mmol/l (3.5-5.1); TOTAL PROTEIN 7.2 g/dL (6.3-8.2)
[2024-03-25] MEDS ORDERED: DEXTROSE 250 ML IV PRN (11:35)
[2024-03-25] MEDS ORDERED: ACETAMINOPHEN 325 MG/TAB PO PRN (11:35)
[2024-03-25] MEDS ORDERED: MAGNESIUM HYDROXIDE 30 ML UDC PO PRN (11:35)
[2024-03-25 11:55] LABS: CALCULATED LDLCHOLESTEROL 116 mg/dL (62-129 (CALC)); CHOLESTEROL HDL RATIO 3.5 (<4.4 (CALC)); HDL CHOLESTEROL 53 mg/dL (39.0-59.0); MAGNESIUM 1.7 mg/dL (1.6-2.3); TOTAL CHOLESTEROL 185 mg/dl (0-199); TOTAL TRIGLYCERIDES 80 mg/dl (0-149); VLDL CHOLESTROL 16 mg/dl (0-38 (CALC))
[2024-03-25] MEDS ORDERED: INSULIN LISPRO 100 UNITS/ML ML SC SCH (17:00)
[2024-03-25] MEDS ORDERED: ENOXAPARIN SODIUM 40 MG/0.4 ML SYR SC SCH (21:00)
[2024-03-26] MEDS ORDERED: PANTOPRAZOLE SODIUM Sesquihydr 40 MG/TAB PO SCH (09:00)
== END 2024-03-25 12:11 | disposition left against medical advice (07) | DRG 92 ==
LOC: ED 08:34 → ED-I 10:16 → ED 12:11
PROVIDERS: Family Medicine; Nurse Practitioner Family
DX: R20.0 Anesthesia of skin (principal); I69.954 Hemiplegia and hemiparesis following unspecified cerebrovascular disease affecting left non-dominant side; R20.2 Paresthesia of skin; I10 Essential (primary) hypertension; E11.40 Type 2 diabetes mellitus with diabetic neuropathy, unspecified; J44.9 Chronic obstructive pulmonary disease, unspecified; E78.5 Hyperlipidemia, unspecified; H81.10 Benign paroxysmal vertigo, unspecified ear; Z79.4 Long term (current) use of insulin; Z99.3 Dependence on wheelchair; Z88.9 Allergy status to unspecified drugs, medicaments and biological substances; Z53.29 Procedure and treatment not carried out because of patient's decision for other reasons
CPT/HCPCS: Q9967